=== PATIENT | female | born 1990 | race American Indian/Alaskan Native ===

== ENCOUNTER 2017-08-08 09:08 | Emergency (ER) | payer OTHER ==
[2017-08-08 09:08] VITALS: BMI 34.0
[2017-08-08 09:23] VITALS: O2SAT 98
--- NOTE | 2017-08-08 10:42 | ED PDOC ---
Arrival/HPI - General Chief Complaint: Abnormal Labs Time Seen by Provider: 08/08/17 09:24 Historian: Patient - History of Present Illness Narrative History of Present Illness (Text): 08/08/17 11:41 26-year-old female with a history of cystic fibrosis presents today for repeat beta hCG level to check the viability of . Patient was diagnosed with pneumonia signed out AMA from the hospital 2 days ago. Patient states she was started on Levaquin for pneumonia by her cystic fibrosis physician and medication was immediately stopped when she found out she was 2 days ago. Patient presents today requesting repeat beta hCG level to check for viability of the . Patient complaining of cough. Denies shortness of breath. No chest pain. At present time no medications are being taken at home for pneumonia or for her cystic fibrosis. Past Medical History - Provider Review Nursing Documentation Reviewed: Yes - Travel History Have you recently traveled outside [place] w/in the past 3 mons?: No - Past History Past History: No Previous - Infectious Disease Hx of Infectious Diseases: None - Tetanus Immunization Tetanus Immunization: Unknown - Cardiac Hx Cardiac Disorders: No - Pulmonary Hx Respiratory Disorders: Yes Hx Asthma: Yes Other/Comment: MULTIPLE NODULES BOTH LUNGS BY X RAY AND CT SCAN IMAGING,CYSTIC FIBROSIS - Neurological Hx Neurological Disorder: No - HEENT Hx HEENT Disorder: No - Renal Hx Renal Disorder: No - Endocrine/Metabolic Hx Endocrine Disorders: No - Hematological/Oncological Hx Blood Disorders: No - Integumentary Hx Dermatological Disorder: No - Musculoskeletal/Rheumatological Hx Musculoskeletal Disorders: Yes Hx Back Pain: Yes Hx Fractures: Yes (LEFT ANKLE) - Gastrointestinal Hx Gastrointestinal Disorders: Yes Hx Colitis: Yes (ULCERATIVE) Hx Gastritis: Yes Hx Gastroesophageal Reflux: Yes - Genitourinary/Gynecological Hx Genitourinary Disorders: No - Psychiatric Hx Psychophysiologic Disorder: No Hx Anxiety: No Hx Bipolar Disorder: No Hx Depression: No Hx Emotional Abuse: No Hx Hallucinations: No Hx Panic Disorder: No Hx Post Traumatic Stress Disorder: No Hx Psychosis: No Hx Physical Abuse: No Hx Schizophrenia: No Hx Sexual Abuse: No Hx Substance Use: No - Surgical History Hx Cholecystectomy: Yes Other/Comment: HEMORRHOIDECTOMY. COLONOSCOPY - Anesthesia Hx Anesthesia: Yes Hx Anesthesia Reactions: No Hx Malignant Hyperthermia: No - Suicidal Assessment Feels Threatened In Home Enviroment: No Family/Social History - Physician Review Nursing Documentation Reviewed: Yes Family/Social History: Unknown Family HX Smoking Status: Never Smoked Hx Alcohol Use: Yes Hx Substance Use: No Hx Substance Use Treatment: No Allergies/Home Meds Allergies/Adverse Reactions: Allergies Penicillins Allergy (Severe, Verified 08/08/17 09:16) ANAPHYLAXIS Review of Systems - Review of Systems Constitutional: absent: Fatigue, Fevers Respiratory: Cough. absent: SOB Cardiovascular: absent: Chest Pain, Palpitations Gastrointestinal: absent: Abdominal Pain, Nausea, Vomiting Genitourinary Female: absent: Dysuria Musculoskeletal: absent: Arthralgias Skin: absent: Rash, Pruritis Neurological: absent: Headache, Dizziness Endocrine: absent: Diaphoresis Psychiatric: absent: Anxiety, Depression Physical Exam Vital Signs Reviewed: Yes Vital Signs Temp Pulse Resp BP Pulse Ox 08/08/17 11:00 98.2 F 72 17 115/76 98 08/08/17 09:17 98.9 F 87 16 98 Temperature: Afebrile Blood Pressure: Normal Pulse: Regular Respiratory Rate: Normal Appearance: Positive for: Well-Appearing, Non-Toxic, Comfortable Pain Distress: None Mental Status: Positive for: Alert and Oriented X 3 - Systems Exam Head: Present: Atraumatic Mouth: Present: Moist Mucous Membranes Neck: Present: Normal Range of Motion Respiratory/Chest: Present: Rhonchi. No: Clear to Auscultation, Respiratory Distress, Accessory Muscle Use, Decreased Breath Sounds, Retracting, Tachypneic Cardiovascular: Present: Regular Rate and Rhythm Abdomen: No: Tenderness Neurological: Present: GCS=15, Speech Normal Skin: Present: Warm, Dry, Normal Color. No: Rashes Psychiatric: Present: Alert, Oriented x 3 Medical Decision Making ED Course and Treatment: 08/08/17 11:44 26-year-old female with history of cystic fibrosis and pneumonia diagnosed 2 days ago via chest x-ray. Currently not on any antibiotics and she signed out AGAINST MEDICAL ADVICE 2 days ago. Patient requesting repeat beta hCG to check for viability of . Beta hCG has increased to 197.75 Previous visit reviewed. Patient signed AMA with diagnosis of pneumonia and . I discussed the findings and depth with the patient. I've advised patient to stay in the hospital for IV antibiotics for pneumonia. Patient has refused to stay in the hospital wants to sign out AGAINST MEDICAL ADVICE and will follow up with her cystic fibrosis doctor. The case was discussed with Dr. frias in depth. He is agreed that Zithromax and clindamycin may be the best choice of antibiotics outpatient at this time as the patient has a penicillin allergy. I discussed the plan and depth with the patient. I've advised the patient that she will take Zithromax and clindamycin for pneumonia. I've advised the patient that she should be admitted to the hospital and she must follow-up with her cystic fibrosis specialist as soon as possible. I advised immediate return if symptoms worsen persist or if new concerning symptoms develop. I advised patient to take vitamins. Patient has been advised to not leave the emergency room but has decided to go AGAINST MEDICAL ADVICE. The patient possesses capacity to make decisions and has voiced understanding to all my warnings of potential worsening of the condition for which medical care was sought. I have discussed all known and potential risks and consequences to the patient leaving AGAINST MEDICAL ADVICE. Patient is leaving against medical advise. AMA form signed. witness by KAYLAH GREWAL Patient spoke with her cystic fibrosis specialist. The cystic fibrosis specialist has agreed with the antibiotics that we have chosen. The patient states she has a follow-up appointment with her doctor next week. Patient states that she will return if anything worsens. all aspects of this case were discussed the attending of record. impression: Pneumonia, Return if you wish to continue your care Zithromax daily 4 days Clindamycin 3 times daily 7 days Follow-up with the cystic fibrosis specialist as soon as possible Return immediately if symptoms worsen persists or if new concerning symptoms develop Take your vitamins as prescribed - Lab Interpretations Lab Results: Lab Results 08/08/17 10:00: Beta HCG, Quant 197.75 H - Medication Orders Current Medication Orders: Discontinued Medications Azithromycin (Zithromax) 500 mg PO STAT STA PRN Reason: Protocol Stop: 08/08/17 11:40 Last Admin: 08/08/17 11:54 Dose: 500 mg Clindamycin HCl (Cleocin) 300 mg PO STAT STA PRN Reason: Protocol Stop: 08/08/17 11:40 Last Admin: 08/08/17 11:54 Dose: 300 mg Disposition/Present on Arrival - Present on Arrival Any Indicators Present on Arrival: No History of DVT/PE: No History of Uncontrolled Diabetes: No Urinary Catheter: No History of Decub. Ulcer: No History Surgical Site Infection Following: None - Disposition Have Diagnosis and Disposition been Completed?: Yes Diagnosis: Pneumonia, Positive blood test Disposition: AGAINST MEDICAL ADVICE Disposition Time: 11:48 Patient Plan: Other (AMA) Patient Problems: Current Active Problems Problem Status Onset Pneumonia Acute Positive blood test Acute Condition: SERIOUS Discharge Instructions (ExitCare): Pneumonia (ED) Additional Instructions: Return if you wish to continue your care Zithromax daily 4 days Clindamycin 3 times daily 7 days Follow-up with the cystic fibrosis specialist as soon as possible Return immediately if symptoms worsen persists or if new concerning symptoms develop Take your vitamins as prescribed Prescriptions: Azithromycin [Zithromax] 250 mg PO DAILY #4 tab Clindamycin [Cleocin] 300 mg PO TID #21 cap Multivit/Folic Acid/I [ Plus] 1 tab PO DAILY #30 tab Referrals: Ricco BUCHANAN,Mauro Campbell MD [Primary Care Provider] - Follow up with primary Keila Leung MD [Staff Provider] - Follow up with primary Danilo Frias MD [Staff Provider] - Follow up with primary Forms: [employer] (Syriac)
[2017-08-08 11:01] VITALS: PULSE 72; RESP 17
[2017-08-08 12:02] VITALS: BP 120/72; TEMP 98.5
== END 2017-08-08 12:01 | disposition left against medical advice (07) ==
LOC: ED 09:08
DX: J18.9 Pneumonia, unspecified organism (principal); Z32.01 Encounter for pregnancy test, result positive

== ENCOUNTER 2017-08-27 20:40 | Emergency (ER) | payer OTHER ==
[2017-08-27 20:41] VITALS: BMI 34.0
[2017-08-27 21:07] VITALS: RESP 16; TEMP 98.9
[2017-08-27] MEDS ORDERED: Sodium Chloride 0.9% 500 ML IV STA (21:10)
[2017-08-27 21:55] LABS: URINE BILIRUBIN NEGATIVE (NEGATIVE); URINE BLOOD MODERATE (NEGATIVE); URINE GLUCOSE (UA) NEGATIVE (NEGATIVE); URINE KETONE TRACE mg/dL (NEGATIVE); URINE LEUKOCYTE ESTERASE SMALL Leu/uL (NEGATIVE); URINE PROTEIN 30 mg/dL (<30 mg/dL); URINE UROBILINOGEN 0.2 E.U./dL (<1 E.U./dL)
[2017-08-27 21:56] LABS: URINE APPEARANCE CLEAR (CLEAR); URINE COLOR YELLOW (YELLOW)
[2017-08-27 22:00] LABS: BASO # 0.03 K/mm3 (0.0-2.0); BASO % 0.4 % (0.0-3.0); EOS # 0.2 (0.0-0.7); EOS % 2.7 % (1.5-5.0); GRAN # 5.22 (1.4-6.5); GRAN % 70.2 % (50.0-68.0); HEMATOCRIT 36.4 % (36.0-48.0); LYMPH # 1.6 (1.2-3.4); MEAN CELL VOLUME 83.9 fl (80.0-105.0); MEAN CORPUSCULAR HEMOGLOBIN 28.1 pg (25.0-35.0); MEAN CORPUSCULAR HGB CONC 33.5 g/dl (31.0-37.0); MONO # 0.4 (0.1-0.6); MONO % 4.7 % (1.0-6.0); RED CELL DISTRIBUTION WIDTH 14.9 % (11.5-14.5); WHITE BLOOD COUNT 7.4 10^3/ul (4.5-11.0)
--- NOTE | 2017-08-27 22:06 | US ---
EXAM: US First Trimester, Transabdominal CLINICAL HISTORY: 27 years old, female; Pain; complicated by abdominal or pelvic pain; Lower; First trimester; Gestational age or lmp: 6wks; ; Additional info: R/O ectopic TECHNIQUE: Real-time transabdominal obstetrical ultrasound of the maternal pelvis and a first trimester with image documentation. COMPARISON: US - OB TRANSVAGINAL 2017-08-05 17:07 FINDINGS: Gestation: Single live intrauterine gestation. heart rate of 149 beats per minute. [place]-rump length of 0.93 cm, correlating with gestational age of 7 weeks 0 days. Uterus/cervix: No subchorionic hemorrhage. No cervical dilatation or effacement. Ovaries: Normal ovaries. No adnexal masses. Free fluid: No significant free fluid. IMPRESSION: 1. Single live intrauterine gestation. EXAM: US , Transvaginal CLINICAL HISTORY: 27 years old, female; Pain; complicated by abdominal or pelvic pain; Lower; First trimester; Gestational age or lmp: 6wks; ; Additional info: R/O ectopic TECHNIQUE: Real-time transvaginal obstetrical ultrasound of the maternal pelvis and a first trimester with image documentation. Transvaginal imaging was used for better evaluation of the fetus and adnexa. COMPARISON: US - OB TRANSVAGINAL 2017-08-05 17:07 FINDINGS: Gestation: Single live intrauterine gestation. heart rate of 149 beats per minute. [place]-rump length of 0.93 cm, correlating with gestational age of 7 weeks 0 days. Uterus/cervix: No subchorionic hemorrhage. No cervical dilatation or effacement. Ovaries: Normal ovaries. No adnexal masses. Free fluid: No significant free fluid.
[2017-08-27 22:17] LABS: ALKALINE PHOSPHATASE 69 U/L (38-126); ALT/SGPT 29 U/L (7-56); AST/SGOT 31 U/L (14-36); BILIRUBIN,TOTAL 0.4 mg/dL (0.2-1.3); BLOOD UREA NITROGEN 10 mg/dL (7-21); CALCIUM 9.6 mg/dL (8.4-10.5); CARBON DIOXIDE 25 mmol/L (21-33); CHLORIDE 103 mmol/L (98-107); GFR AFRICAN-AMERICAN > 60; GLUCOSE,RANDOM 101 mg/dL (70-110); POTASSIUM 3.7 mmol/L (3.6-5.0); SODIUM 138 mmol/L (132-148); TOTAL PROTEIN 7.9 g/dL (5.8-8.3)
--- NOTE | 2017-08-27 22:31 | ED PDOC ---
Arrival/HPI - General Chief Complaint: Abdominal Pain Time Seen by Provider: 08/27/17 21:06 Historian: Patient - History of Present Illness Narrative History of Present Illness (Text): 08/27/17 21:10 Hannah Knutson is a 27 year old female, whose past medical history includes cystic fibrosis, taken off her controller medications at beginning of , , approximated gestation estimated by last LNMP 6 weeks prior, presented for 1-2 days duration of vaginal bleeding when wiping only. Patient also complaining of 1 day duration of left mid-axillary subcostal point tenderness, without any exacerbating factors. Patient denies any fever, chills, chest pain, shortness of breath, nausea, vomiting, back pain, neck pain, headache, dizziness , or any other complaints. Time/Duration: < week (1-2 days) Symptom Onset: Gradual Symptom Course: Unchanged Activities at Onset: Light Context: Home Past Medical History - Provider Review Nursing Documentation Reviewed: Yes - Past History Past History: No Previous - Infectious Disease Hx of Infectious Diseases: None - Tetanus Immunization Tetanus Immunization: Unknown - Cardiac Hx Cardiac Disorders: No - Pulmonary Hx Respiratory Disorders: Yes Hx Asthma: Yes Other/Comment: MULTIPLE NODULES BOTH LUNGS BY X RAY AND CT SCAN IMAGING,CYSTIC FIBROSIS - Neurological Hx Neurological Disorder: No - HEENT Hx HEENT Disorder: No - Renal Hx Renal Disorder: No - Endocrine/Metabolic Hx Endocrine Disorders: No - Hematological/Oncological Hx Blood Disorders: No - Integumentary Hx Dermatological Disorder: No - Musculoskeletal/Rheumatological Hx Musculoskeletal Disorders: Yes Hx Back Pain: Yes Hx Fractures: Yes (LEFT ANKLE) - Gastrointestinal Hx Gastrointestinal Disorders: Yes Hx Colitis: Yes (ULCERATIVE) Hx Gastritis: Yes Hx Gastroesophageal Reflux: Yes - Genitourinary/Gynecological Hx Genitourinary Disorders: No - Psychiatric Hx Psychophysiologic Disorder: No Hx Anxiety: No Hx Bipolar Disorder: No Hx Depression: No Hx Emotional Abuse: No Hx Hallucinations: No Hx Panic Disorder: No Hx Post Traumatic Stress Disorder: No Hx Psychosis: No Hx Physical Abuse: No Hx Schizophrenia: No Hx Sexual Abuse: No Hx Substance Use: No - Surgical History Hx Cholecystectomy: Yes Other/Comment: HEMORRHOIDECTOMY. COLONOSCOPY. tummy tuck - Anesthesia Hx Anesthesia: Yes Hx Anesthesia Reactions: No Hx Malignant Hyperthermia: No - Suicidal Assessment Feels Threatened In Home Enviroment: No Family/Social History - Physician Review Nursing Documentation Reviewed: Yes Family/Social History: Unknown Family HX Smoking Status: Never Smoked Hx Alcohol Use: Yes Hx Substance Use: No Hx Substance Use Treatment: No Allergies/Home Meds Allergies/Adverse Reactions: Allergies Penicillins Allergy (Severe, Verified 08/08/17 09:16) ANAPHYLAXIS Review of Systems - Physician Review All systems were reviewed & negative as marked: Yes - Review of Systems Constitutional: Normal. absent: Fevers Eyes: Normal ENT: Normal Respiratory: Normal. absent: SOB, Cough Cardiovascular: Normal. absent: Chest Pain Gastrointestinal: Abdominal Pain. absent: Diarrhea, Nausea, Vomiting Genitourinary Female: Vaginal Bleeding. absent: Dysuria, Frequency Musculoskeletal: Normal. absent: Neck Pain Skin: Normal. absent: Rash Neurological: Normal. absent: Headache, Dizziness Endocrine: Normal Hemo/Lymphatic: Normal Psychiatric: Normal Physical Exam Vital Signs Reviewed: Yes Vital Signs Temp Pulse Resp BP Pulse Ox 08/28/17 01:09 68 16 122/71 99 08/27/17 22:28 74 16 117/63 100 08/27/17 21:04 98.9 F 78 16 123/80 97 Temperature: Afebrile Blood Pressure: Normal Pulse: Regular Respiratory Rate: Normal Appearance: Positive for: Well-Appearing, Non-Toxic, Comfortable Pain Distress: None Mental Status: Positive for: Alert and Oriented X 3 - Systems Exam Head: Present: Atraumatic, Normocephalic Pupils: Present: PERRL Extroacular Muscles: Present: EOMI Conjunctiva: Present: Normal Mouth: Present: Moist Mucous Membranes Neck: Present: Normal Range of Motion Respiratory/Chest: Present: Clear to Auscultation, Good Air Exchange. No: Respiratory Distress, Accessory Muscle Use Cardiovascular: Present: Regular Rate and Rhythm, Normal S1, S2. No: Murmurs, Gallop Abdomen: Present: Tenderness (Left mid axillay subcostal point tenderness, no pelvic tenderness), Normal Bowel Sounds. No: Distention, Peritoneal Signs Genitourinary/Pelvic Exam: Present: Normal External Genitalia, Vaginal Discharge , Cervical os Closed, Other (no blood visualized in the vaginal vault, however copious curdlike discharge adherent to the hilliard is present. ) Back: Present: Normal Inspection Upper Extremity: Present: Normal Inspection. No: Cyanosis, Edema Lower Extremity: Present: Normal Inspection. No: Edema Neurological: Present: GCS=15, CN II-XII Intact, Speech Normal, Motor Func Grossly Intact, Normal Sensory Function, Normal Cerebellar Funct, Norm Deep Tendon Reflexes, Gait Normal, Memory Normal Skin: Present: Warm, Dry, Normal Color. No: Rashes Psychiatric: Present: Alert, Oriented x 3, Normal Insight, Normal Concentration Medical Decision Making ED Course and Treatment: 08/27/17 21:10 Impression: 27 year old female complaining of vaginal bleeding when wiping for 2 days, left mid-axillary subcostal point tenderness x1 day. Plan: -- Transvaginal US -- Labs, Beta-HCG -- Urinalysis, urine cultures -- IV fluids Tylenol -- Reassess and disposition Progress Notes: 08/27/17 22:06 Reviewed sono, Transvaginal US shows: Gestation: Single live intrauterine gestation. heart rate of 149 beats per minute. [place]-rump length of 0.93 cm, correlating with gestational age of 7 weeks 0 days. Uterus/cervix: No subchorionic hemorrhage. No cervical dilatation or effacement. Ovaries: Normal ovaries. No adnexal masses. Free fluid: No significant free fluid. IMPRESSION: 1. Single live intrauterine gestation 08/27/17 23:04 -Pt. refused cxr in light of teratogenicity towards fetus. -She states the pain is rather mild, not associated with any nausea/vomiting / shortness of breath nor any dizziness and hasn't been worseining. She realizes that her left cosptophrenic angle may go unexamined without the cxr but desires to opt for a more watchful waitful approach with the pain if renal/spllen sonogram is normal and will follow up with advised family readiness support assistant . Of note she often suffers chronic constipation. - Lab Interpretations Lab Results: 08/27/17 21:25 08/27/17 21:25 Lab Results 08/27/17 21:25: Beta HCG, Quant 94930.00 H 08/27/17 21:25: Sodium 138, Potassium 3.7, Chloride 103, Carbon Dioxide 25, Anion Gap 14, BUN 10, Creatinine 0.8, Est GFR ( Amer) > 60, Est GFR (Non- Af Amer) > 60, Random Glucose 101, Calcium 9.6, Total Bilirubin 0.4, AST 31, ALT 29, Alkaline Phosphatase 69, Total Protein 7.9, Albumin 3.9, Globulin 4.0, Albumin/Globulin Ratio 1.0 L 08/27/17 21:25: WBC 7.4, RBC 4.34, Hgb 12.2, Hct 36.4, MCV 83.9, MCH 28.1, MCHC 33.5, RDW 14.9 H, Plt Count 335, MPV 9.0, Gran % 70.2 H, Lymph % (Auto) 22.0, Morton % (Auto) 4.7, Eos % (Auto) 2.7, Baso % (Auto) 0.4, Gran # 5.22, Lymph # 1.6 , Morton # 0.4, Eos # 0.2, Baso # 0.03 08/27/17 21:10: Urine Color Yellow, Urine Appearance Clear, Urine pH 6.0, Ur Specific [place] >= 1.030, Urine Protein 30 H, Urine Glucose (UA) Negative, Urine Ketones Trace H, Urine Blood Moderate H, Urine Nitrate Negative, Urine Bilirubin Negative, Urine Urobilinogen 0.2, Ur Leukocyte Esterase Small H, Urine RBC 15 - 20, Urine WBC 5 - 10, Ur Epithelial Cells 6 - 8, Amorphous Sediment Few, Urine Bacteria Many, Hyaline Casts 0 - 2, Urine Other Uyeast, Urine HCG, Qual Positive I have reviewed the lab results: Yes - RAD Interpretation Radiology Orders: 08/27/17 21:10 OB TRANSVAGINAL [US] Stat 08/27/17 22:16 RENAL SPLEEN [US] Stat Tacking Stitch Remover: ED Physician, Radiologist - Medication Orders Current Medication Orders: Discontinued Medications Acetaminophen (Tylenol 325mg Tab) 650 mg PO STAT STA Stop: 08/27/17 21:12 Last Admin: 08/27/17 21:19 Dose: 650 mg MAR Pain/Vitals Document 08/27/17 21:19 YP (Rec: 08/27/17 21:19 YP [id number] Pain Reassessment Is This A Pain ReAssessment? No Sleep Is patient sleeping during reassessment? No Presence of Pain Presence of Pain Yes Famotidine (Pepcid) 20 mg IVP STAT STA Stop: 08/27/17 22:17 Last Admin: 08/27/17 22:27 Dose: 20 mg IVP Administration Document 08/27/17 22:27 YP (Rec: 08/27/17 22:27 YP [id number]) Charges for Administration # of IVP Administrations 1 Sodium Chloride (Sodium Chloride 0.9%) 500 mls @ 1,000 mls/hr IV .Q30M STA Stop: 08/27/17 21:39 Last Admin: 08/27/17 21:24 Dose: 1,000 mls/hr eMAR Start Stop Document 08/27/17 21:24 YP (Rec: 08/27/17 21:26 YP [email or web address] Intravenous Solution Start Date 08/27/17 Start Time 21:26 End Date 08/27/17 End time 21:56 Total Infusion Time 30 Nitrofurantoin Macrocrystals (Macrobid) 100 mg PO ONCE ONE Stop: 08/27/17 23:19 Last Admin: 08/28/17 00:09 Dose: 100 mg - Scribe Statement The provider has reviewed the documentation as recorded by the Alvinibrikki Youssef All medical record entries made by the Alvinibrikki were at my direction and personally dictated by me. I have reviewed the chart and agree that the record accurately reflects my personal performance of the history, physical exam, medical decision making, and the department course for this patient. I have also personally directed, reviewed, and agree with the discharge instructions and disposition. Disposition/Present on Arrival - Present on Arrival Any Indicators Present on Arrival: No History of DVT/PE: No History of Uncontrolled Diabetes: No Urinary Catheter: No History of Decub. Ulcer: No History Surgical Site Infection Following: None - Disposition Have Diagnosis and Disposition been Completed?: Yes Diagnosis: Threatened in early , Asymptomatic bacteriuria during in first trimester, Vulvovaginal candidiasis Disposition: HOME/ ROUTINE Disposition Time: 02:00 Patient Plan: Discharge Condition: STABLE Discharge Instructions (ExitCare): Threatened Miscarriage (ED), Urinary Tract Infection in (ED) Print Language: NORWEGI[place] Additional Instructions: Unfortunately nature willtake its course. If you suffer more bleleding and crampy pain you may be en route to a miscarriage , if the bleeding stops and crampy pain dissipates you may lkley go on to have a viable and healthy child. Return urgently if you begin soaking through more than 3 pads/ hour x 2-3 hours consecutively or expeirence dizziness and/or chest pain in the setting of vaginal bleeding. You were found to have a curdlike discharge, it this begins to bother you you can use the follow up with your family readiness support assistant doctor.Please watch your sugar intake in general which predisposes one to yeast infections. . Prescriptions: Acetaminophen [Tylenol 325mg tab] 650 mg PO Q8 PRN #50 tab PRN Reason: Pain, Moderate (4-7) Nitrofurantoin Macrocrystals [Macrobid] 100 mg PO BID #14 cap 21/Iron Fu/Folic Acid [ Complete Caplet] 1 each PO DAILY #30 tablet Referrals: Ricco BUCHANAN,Mauro Campbell MD [Primary Care Provider] - Follow up with primary Antoinette Gayle MD [Staff Provider] - Follow up with primary Forms: [employer] (Divehi)
[2017-08-27 22:45] LABS: URINE RBC 15 - 20 /hpf (0-2)
[2017-08-27 22:46] LABS: URINE AMORPHOUS SEDIMENT FEW; URINE BACTERIA MANY (NEG)
--- NOTE | 2017-08-27 23:46 | ED PDOC ---
Physical Exam Vital Signs Temp Pulse Resp BP Pulse Ox 08/27/17 22:28 74 16 117/63 100 08/27/17 21:04 98.9 F 78 16 123/80 97 Medical Decision Making ED Course and Treatment: 08/27/17 23:00 Case endorsed to me by Dr. Valerio, pending Renal US, re-assessment, and final disposition. 08/28/17 00:47 reviewed sono, Renal US shows: The spleen is unremarkable in echogenicity and size measuring 10.6 x 5.3 x 5.2 cm. The right kidney is unremarkable echogenicity and size measuring 8.9 x 4.1 x 4.4 cm. The left kidney is unremarkable in echogenicity and size measuring 9.6 x 4.7 x 4.7 cm. No free fluid is identified within the visualized portions of the abdomen. IMPRESSION: Unremarkable focused ultrasound examination of the spleen and bilateral kidneys , as detailed above. - Lab Interpretations Lab Results: 08/27/17 21:25 08/27/17 21:25 Lab Results 08/27/17 21:25: Beta HCG, Quant [id number] H 08/27/17 21:25: Sodium 138, Potassium 3.7, Chloride 103, Carbon Dioxide 25, Anion Gap 14, BUN 10, Creatinine 0.8, Est GFR ( Amer) > 60, Est GFR (Non- Af Amer) > 60, Random Glucose 101, Calcium 9.6, Total Bilirubin 0.4, AST 31, ALT 29, Alkaline Phosphatase 69, Total Protein 7.9, Albumin 3.9, Globulin 4.0, Albumin/Globulin Ratio 1.0 L 08/27/17 21:25: WBC 7.4, RBC 4.34, Hgb 12.2, Hct 36.4, MCV 83.9, MCH 28.1, MCHC 33.5, RDW 14.9 H, Plt Count 335, MPV 9.0, Gran % 70.2 H, Lymph % (Auto) 22.0, [place] % (Auto) 4.7, Eos % (Auto) 2.7, Baso % (Auto) 0.4, Gran # 5.22, Lymph # 1.6 , [place] # 0.4, Eos # 0.2, Baso # 0.03 08/27/17 21:10: Urine Color Yellow, Urine Appearance Clear, Urine pH 6.0, Ur Specific [place] >= 1.030, Urine Protein 30 H, Urine Glucose (UA) Negative, Urine Ketones Trace H, Urine Blood Moderate H, Urine Nitrate Negative, Urine Bilirubin Negative, Urine Urobilinogen 0.2, Ur Leukocyte Esterase Small H, Urine RBC 15 - 20, Urine WBC 5 - 10, Ur Epithelial Cells 6 - 8, Amorphous Sediment Few, Urine Bacteria Many, Hyaline Casts 0 - 2, Urine Other Uyeast, Urine HCG, Qual Positive - RAD Interpretation Radiology Orders: 08/27/17 21:10 OB TRANSVAGINAL [US] Stat 08/27/17 22:16 RENAL SPLEEN [US] Stat Medical Records Technician: Radiologist - Medication Orders Current Medication Orders: Discontinued Medications Acetaminophen (Tylenol 325mg Tab) 650 mg PO STAT STA Stop: 08/27/17 21:12 Last Admin: 08/27/17 21:19 Dose: 650 mg MAR Pain/Vitals Document 08/27/17 21:19 YP (Rec: 08/27/17 21:[address] [id number]) Pain Reassessment Is This A Pain ReAssessment? No Sleep Is patient sleeping during reassessment? No Presence of Pain Presence of Pain Yes Famotidine (Pepcid) 20 mg IVP STAT STA Stop: 08/27/17 22:17 Last Admin: 08/27/17 22:27 Dose: 20 mg IVP Administration Document 08/27/17 22:27 YP (Rec: 08/27/17 22:27 YP [id number]) Charges for Administration # of IVP Administrations 1 Sodium Chloride (Sodium Chloride 0.9%) 500 mls @ 1,000 mls/hr IV .Q30M STA Stop: 08/27/17 21:39 Last Admin: 08/27/17 21:24 Dose: 1,000 mls/hr eMAR Start Stop Document 08/27/17 21:24 YP (Rec: 08/27/17 21:[address] [id number]) Intravenous Solution Start Date 08/27/17 Start Time 21:26 End Date 08/27/17 End time 21:56 Total Infusion Time 30 Nitrofurantoin Macrocrystals (Macrobid) 100 mg PO ONCE ONE Stop: 08/27/17 23:19 Last Admin: 08/28/17 00:09 Dose: 100 mg Disposition/Present on Arrival - Present on Arrival Any Indicators Present on Arrival: No History of DVT/PE: No History of Uncontrolled Diabetes: No Urinary Catheter: No History of Decub. Ulcer: No History Surgical Site Infection Following: None - Disposition Have Diagnosis and Disposition been Completed?: Yes Diagnosis: Threatened in early , Asymptomatic bacteriuria during in first trimester, Vulvovaginal candidiasis Disposition: HOME/ ROUTINE Disposition Time: 00:58 Patient Problems: Current Active Problems Problem Status Onset Asymptomatic bacteriuria during in first trimester Acute Threatened in early Acute Vulvovaginal candidiasis Acute Condition: STABLE Discharge Instructions (ExitCare): Threatened Miscarriage (ED), Urinary Tract Infection in (ED) Print Language: CHILEAN Additional Instructions: Unfortunately nature willtake its course. If you suffer more bleleding and crampy pain you may be en route to a miscarriage , if the bleeding stops and crampy pain dissipates you may lkley go on to have a viable and healthy child. Return urgently if you begin soaking through more than 3 pads/ hour x 2-3 hours consecutively or expeirence dizziness and/or chest pain in the setting of vaginal bleeding. 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 . Prescriptions: Nitrofurantoin Macrocrystals [Macrobid] 100 mg PO BID #14 cap 21/Iron Fu/Folic Acid [ Complete Caplet] 1 each PO DAILY #30 tablet Acetaminophen [Tylenol 325mg tab] 650 mg PO Q8 PRN #50 tab PRN Reason: Pain, Moderate (4-7) Referrals: Antoinette Gayle MD [Staff Provider] - Follow up with primary Ricco BUCHANAN,Mauro Campbell MD [Primary Care Provider] - Follow up with primary Forms: [employer] ([place])
--- NOTE | 2017-08-28 00:44 | US ---
EXAM: US Abdomen Limited CLINICAL HISTORY: 27 years old, female; Pain; Abdominal pain; Localized; Left; ; Additional info: Luq/spleen pain TECHNIQUE: Real-time ultrasound of the abdomen (limited) with image documentation. COMPARISON: None FINDINGS: The spleen is unremarkable in echogenicity and size measuring 10.6 x 5.3 x 5.2 cm. The right kidney is unremarkable echogenicity and size measuring 8.9 x 4.1 x 4.4 cm. The left kidney is unremarkable in echogenicity and size measuring 9.6 x 4.7 x 4.7 cm. No free fluid is identified within the visualized portions of the abdomen. IMPRESSION: Unremarkable focused ultrasound examination of the spleen and bilateral kidneys, as detailed above.
[2017-08-28 01:09] VITALS: BP 122/71; PULSE 68; O2SAT 99
== END 2017-08-28 01:10 | disposition home or self-care (01) ==
LOC: ED 20:40
DX: O20.0 Threatened abortion (principal); O28.8 Other abnormal findings on antenatal screening of mother; B37.3 Candidiasis of vulva and vagina; Z3A.01 Less than 8 weeks gestation of pregnancy
CPT/HCPCS: 76705; 76817; 80053; 81001; 84702; 84703; 85025; 87086; 96374; 99284; J7040

== ENCOUNTER 2019-01-23 11:24 | Outpatient (CLI) | payer OTHER | END 2019-01-23 11:25 | disposition home or self-care (01) | LOC: CARDIO 11:24 ==